=== PATIENT | male | born 1990 | race Two or more races ===

== ENCOUNTER 2018-01-14 09:40 | Emergency (ER) | payer MEDICAID, OTHER ==
[~2018-01-14] VITALS: Ht 182.9 cm; Wt 104.3 kg
[~2018-01-14 09:40] MED LIST: IBUP100S11; PHENERGAN; VENTOLIN
[2018-01-14 10:00] VITALS: BP 143/95
== END 2018-01-14 11:19 | disposition home or self-care (01) ==
LOC: ER 09:40
DX: S93.402A Sprain of unspecified ligament of left ankle, initial encounter (principal); J45.909 Unspecified asthma, uncomplicated; Z88.8 Allergy status to other drugs, medicaments and biological substances; W22.8XXA Striking against or struck by other objects, initial encounter; Y93.89 Activity, other specified; Y99.8 Other external cause status; Y92.89 Other specified places as the place of occurrence of the external cause
CPT/HCPCS: 73610

== ENCOUNTER 2020-08-30 10:00 | Emergency (ER) | payer BC, MEDICAID, OTHER ==
[~2020-08-30] VITALS: Ht 180.3 cm; Wt 127.9 kg
[2020-08-30 10:02] VITALS: BP 116/86
== END 2020-08-30 11:19 | disposition home or self-care (01) ==
LOC: ER 10:00
DX: K13.79 Other lesions of oral mucosa (principal)
CPT/HCPCS: 71045

== ENCOUNTER 2021-06-20 18:20 | Emergency (ER) | payer OTHER ==
[~2021-06-20] VITALS: Ht 180.3 cm; Wt 127.0 kg
[2021-06-20] MEDS ORDERED: LORazepam 0.5 MG TAB PO ONE (19:30)
[2021-06-20] MEDS ORDERED: cefTRIAXone 1GM/50ML D5W 50 ML IV ONE (19:30)
[2021-06-20] MEDS ORDERED: DexAMETHasone INJECTION 10 MG in D5W 5% 50 ML IV ONE (19:30)
[2021-06-20 19:39] LABS: Basophils # (auto) 0.1 10 ^3/uL (0-0.2); Basophils % (auto) 1.1 % (0.0-2.0); Eosinophils # (auto) 0.3 10 ^3/uL (0-0.8); Hemoglobin 15.6 g/dL (13.5-17.5); Lymphocytes # (auto) 2.6 10 ^3/uL (0.4-5.4); Lymphocytes % (auto) 22.4 % (10.0-50.0); Mean Corpuscular Hemoglobin 30.1 pg (28.0-32.0); Mean Corpuscular Hgb Conc. 34.7 g/dL (32.0-36.0); Mean Corpuscular Volume 86.9 fL (80.0-100.0); Monocytes # (auto) 0.8 10 ^3/uL (0-1.3); Neutrophils # (auto) 7.7 10 ^3/uL (1.6-8.6); Neutrophils % (auto) 66.5 % (37.0-80.0); Nucleated Red Blood Cells % 0.1 %; Red Blood Cells 5.18 10^6/uL (4.5-5.90); Red Cell Distribution Width 13.3 % (11.8-14.3); White Blood Cell 11.6 10^3/uL (4.4-10.8)
[2021-06-20 19:55] LABS: Albumin 3.4 g/dL (3.4-5.0); Anion Gap 7 (5-15); Blood Urea Nitrogen 10 mg/dL (7-18); Calcium 8.6 mg/dL (8.5-10.1); Carbon Dioxide 25 mmol/L (21-32); Chloride 108 mmol/L (98-107); Glucose 107 mg/dL (74-106); Potassium 3.6 mmol/L (3.5-5.1); Sodium 140 mmol/L (136-145)
[2021-06-20 20:03] LABS: Alanine Aminotransferase 112 U/L (16-61); Alkaline Phosphatase 126 U/L (45-117); Aspartate Aminotransferase 56 U/L (15-37); BUN/Creatinine Ratio 11.4; Bilirubin, Total 0.5 mg/dL (0.2-1.0); GFR African American 133 mL/min; GFR Non-African American 110 mL/min; Total Protein 7.9 g/dL (6.4-8.2)
[2021-06-20] MEDS ORDERED: DexAMETHasone SOD PHOS 4 MG/1ML SDV INJ ONE (23:09)
[2021-06-21 00:27] LABS: Urine Bacteria NONE SEEN /hpf (None Seen); Urine Blood Negative /uL (Negative); Urine Mucus FEW (None Seen); Urine Specific Gravity 1.026 (1.001-1.035); Urine WBC 22 /hpf (0 - 3)
[2021-06-21 03:43] VITALS: BP 117/57
[2021-06-21] MEDS ORDERED: DexAMETHasone INJECTION 10 MG in D5W 5% 50 ML IV SCH (10:00)
== END 2021-06-21 03:45 | disposition home or self-care (01) ==
LOC: ER 18:23
DX: R07.89 Other chest pain (principal); F41.9 Anxiety disorder, unspecified; J45.909 Unspecified asthma, uncomplicated
CPT/HCPCS: 36415; 71045; 76870; 80053; 81001; 84484; 85025; 85379; 93005; 96365; 96368; 99285; J0696; J1100; J7060

== ENCOUNTER 2023-07-20 13:44 | Emergency (ER) | payer MEDICAID, OTHER ==
[~2023-07-20] VITALS: Ht 177.8 cm; Wt 103.7 kg
[2023-07-20 14:42] LABS: Urine Bacteria NONE SEEN /hpf (None Seen); Urine Blood Negative /uL (Negative); Urine Clarity Clear (Clear); Urine Color Yellow (Yellow); Urine Protein, UAD Negative (Negative); Urine Specific Gravity 1.021 (1.001-1.035); Urine Urobilinogen Normal (Negative); Urine WBC 1 /hpf (0 - 3)
[2023-07-20 15:45] VITALS: BP 130/82; PULSE 86; RESP 20; TEMP 98.6; O2SAT 100
== END 2023-07-20 15:59 | disposition home or self-care (01) ==
LOC: ER 13:44
DX: N50.811 Right testicular pain (principal); N43.3 Hydrocele, unspecified; K40.90 Unilateral inguinal hernia, without obstruction or gangrene, not specified as recurrent; J45.909 Unspecified asthma, uncomplicated; Z79.899 Other long term (current) drug therapy; Z88.8 Allergy status to other drugs, medicaments and biological substances; Z91.011 Allergy to milk products
CPT/HCPCS: 76870; 81001